=== PATIENT | female | born 1955 | race Caucasian/White ===

== ENCOUNTER 2017-02-28 12:44 | Outpatient (CLI) | payer OTHER | END 2017-02-28 12:45 | disposition home or self-care (01) | DX: R19.7 Diarrhea, unspecified (principal); R00.0 Tachycardia, unspecified ==

== ENCOUNTER 2017-03-01 08:00 | Outpatient (CLI) | payer OTHER | END 2017-03-01 08:01 | disposition home or self-care (01) | DX: R19.7 Diarrhea, unspecified (principal); R00.0 Tachycardia, unspecified ==